=== PATIENT | male | born 1975 | race Caucasian/White ===

== ENCOUNTER → 2019-07-17 11:15 | Outpatient (BNVA) | payer BC, SELFPAY | PROVIDERS: Family Provider Family Medicine; PCP Family Medicine; Referring Provider Internal Medicine; Visit Provider Orthopaedic Surgery | DX: M25.561 Pain in right knee (principal) | CPT/HCPCS: 73560; 73565 ==

== ENCOUNTER 2019-08-01 12:49 | Outpatient (CLI) | payer BC, SELFPAY ==
--- NOTE | 2019-08-01 12:59 | MR_ITS ---
WS: [id number] MRI RIGHT KNEE HISTORY: history of meniscal tear COMPARISON: 05/04/2011 Anterior cruciate ligament: Intact. Posterior cruciate ligament: Intact. Medial collateral ligament: Intact. Posterior lateral corner structures: Intact. Medial menisci: Intact. Normal signal, size and shape. Lateral meniscus: Intact. Normal signal, size and shape. There is slight increased signal in the body . Seen only on one sequence. Indeterminate for radial tear. Extensor mechanism: Extensor tendon is normal. Again noted is increased signal in the distal patellar tendon. Fragmentation in the tibial tubercle with increased fluid between the tubercle fragments and mild increased signal in the tibia. Small amount of fluid in the adjacent infrapatellar fat pad. Fluid and soft tissue: Small joint effusion. No Henao's cyst. Osseous and articular structures: Patellofemoral compartment: Normal. Medial compartment: Loss of cartilage along the medial femoral condyle towards the intercondylar notc h. There is an additional full thickness defect in the posterior femoral condyle cartilage. Lateral compartment: No significant degenerative change. 5 mm low signal nodule seen within the medial joint compartment and posterior to the meniscus. Not pr esent on prior studies and is thought to be a loose body. Lobulated cyst measures 8 mm posterior lateral tibial plateau. MR/MR knee RT wo con* [id number] IMPRESSION: 1. No acute meniscal tear. Indeterminate for radial tear body lateral meniscus . 2. Well-circumscribed 5 mm loose body posterior to the medial meniscus. 3. Fragmentation of the tibial tubercle with increased fluid surrounding the f ragments and extending into the infrapatellar fat pad with mild patellar tendin itis. 4. Focal, superficial chondromalacia medial femoral condyle. Additional chondr omalacia posterior medial femoral condyle.
== END 2019-08-01 12:50 | disposition home or self-care (01) ==
LOC: RADSHAW 12:56
PROVIDERS: Family Provider Family Medicine; PCP Internal Medicine; Visit Provider Internal Medicine
DX: M25.561 Pain in right knee (principal); M94.261 Chondromalacia, right knee
CPT/HCPCS: 73721

== ENCOUNTER 2020-01-05 08:13 | Outpatient (CLI) | payer BC, SELFPAY ==
[2020-01-05 08:36] LABS: Basophils # 0.1 10^3/uL (0.0-0.1); Basophils % 0.9 %; Hematocrit 52.5 % (42.0-52.0); Hemoglobin 17.8 g/dL (11.7-16.6); Lymphocytes # 3.2 10^3/uL (0.8-4.8); Lymphocytes % 34.4 %; Mean Corpuscular HGB Conc 33.9 g/dL (30.0-36.0); Mean Corpuscular Hemoglobin 29.2 pg (28.0-34.0); Mean Corpuscular Volume 86.2 fL (80-94); Monocytes # 0.7 10^3/uL (0.2-0.9); Neutrophils # 5.32 10^3/uL (1.8-7.7); Neutrophils % 57.6 %; Nucleated Red Blood Cells % 0 %; Platelet Count 310 10^3/cmm (130-400); Red Blood Count 6.09 10^6/uL (4.1-5.3); Red Cell Distribution Width 11.9 % (12.1-15.1); White Blood Count 9.2 10^3/uL (4.0-10.0)
[2020-01-05 08:52] LABS: Estmated Average Glucose 203; Hemoglobin A1C 8.7 % (4.0-6.0)
[2020-01-05 08:53] LABS: Alanine Aminotransferase 50 U/L (0-41); Albumin Level 4.1 g/dL (3.5-5.2); Alkaline Phosphatase 76 IU/L (40-130); Anion Gap 13.8 (5-19); Aspartate Amino Transferase 28 U/L (0-40); Blood Urea Nitrogen 10 mg/dL (6-20); Calcium 8.7 mg/dL (8.5-10.5); Carbon Dioxide 29 mmol/L (22-29); Chloride 102 mmol/L (98-107); Cholesterol 203 mg/dL (0-200); Globulin 3.3 g/dL (1.3-4.6); Glomerular Filtration Rate 81.6 mL/min (90-130); Glucose 130 mg/dL (65-115); HDL Cholesterol 35 mg/dL (60-100); LDL Cholesterol Calculated 113 mg/dL (50-129); LDL HDL Ratio 3.23 RATIO (0.00-3.22); Osmolality Calculated 290 mOsm/kg (285-295); Potassium 3.8 mmol/L (3.5-5.1); Sodium 141 mmol/L (136-145); Total Bilirubin 0.3 mg/dL (0.15-1.2); Total Protein 7.4 g/dL (6.6-8.7); Triglycerides 277 mg/dL (0-150)
== END 2020-01-05 08:14 | disposition home or self-care (01) ==
LOC: LAB 08:16
PROVIDERS: PCP Internal Medicine; Visit Provider Internal Medicine
DX: E11.9 Type 2 diabetes mellitus without complications (principal); K75.81 Nonalcoholic steatohepatitis (NASH)
CPT/HCPCS: 36415; 80053; 80061; 83036; 85025

== ENCOUNTER → 2020-04-10 13:45 | Outpatient (BNVA) | payer BC, SELFPAY | PROVIDERS: PCP Internal Medicine; Visit Provider Nurse Practitioner | DX: U07.1 COVID-19 (principal) | CPT/HCPCS: 87635 ==

== ENCOUNTER → 2020-12-14 15:32 | Outpatient (BNVA) | payer BC, SELFPAY | PROVIDERS: PCP Internal Medicine; Visit Provider Internal Medicine | DX: E11.9 Type 2 diabetes mellitus without complications (principal); B35.1 Tinea unguium; I10 Essential (primary) hypertension | CPT/HCPCS: 80053; 80061; 83036; 84443; G0103 ==

== ENCOUNTER → 2021-07-05 14:45 | Outpatient (BNVA) | payer OTHER, SELFPAY | PROVIDERS: PCP Internal Medicine; Visit Provider Internal Medicine | DX: E11.9 Type 2 diabetes mellitus without complications (principal); I10 Essential (primary) hypertension | CPT/HCPCS: 80053; 80061; 83036; 84443 ==

== ENCOUNTER 2021-12-12 06:20 | Day surgery (SDC) | payer OTHER, SELFPAY ==
[2021-12-08 09:39] VITALS: BMI 37.5
[2021-12-12 06:46] VITALS: BP 172/111; PULSE 69; RESP 18; TEMP 36.2; O2SAT 97
--- NOTE | 2021-12-12 06:47 | P.ANESASSM_ITS ---
Pre-Anesthetic Assessment Height/Weight: Height 1.85 m Weight 129.274 kg Preop Diagnosis: Screen Operation Date: 12/12/21 07:30 Proposed Procedures p Colonoscopy 71348,Z86.010(Not Applicable) - Kian Carlin MD Familial anesthetic complications: None Was Beta Yusef taken within 24 hours: N/A Was Clonidine taken within 24 hours: N/A Last Intake: 20:00 Social Alcohol (A few drinks a week) and Tobacco (Social) Exam alert, oriented x 3, clear to auscultation bilaterally and regular rate & rhythm Airway Submandibular: within normal limits Cervical ROM: within normal limits Mallampati: Class III Dentition: other (Broken tooth upper right) History/ROS No significant history except as noted and No significant complaints Pulmonary None reported CV/HEM Hypertension None reported Hepatic None reported GI None reported Metabolic Diabetes Mellitus and Hyperlipidemia [facility] [place] None reported Neuropsych None reported Anesthetic Plan ASA status: 2 Anesthesia: Anesthesia Evaluation, General and MAC Risk of > 500 ml blood loss (7ml/kg in children): No Medications/Allergies Home Medications Medication Instructions Recorded Confirmed Last Taken Type pen needle, diabetic 31 gauge x #100 ea 05/21/19 11/28/21 Unknown Rx 5/16 (Comfort EZ Pen [place]) lisinopril 40 mg tablet 40 mg PO DAILY #90 tabs 12/14/20 12/12/21 12/10/21 Rx insulin lispro 100 unit/mL 5 unit (0.05 mL) SUBCUT TID #15 mL 03/24/21 12/08/21 Unknown Rx subcutaneous pen (Humalog KwikPen (U-100) Insulin) blood-glucose transmitter (Dexcom #1 ea 04/25/21 11/28/21 Unknown Rx G6 Transmitter) nifedipine 30 mg tablet,extended 30 mg PO DAILY #90 tabs 11/10/21 12/12/21 12/12/21 Rx release tadalafil 20 mg tablet 20 mg PO DAILY PRN sexual activity 11/11/21 12/12/21 12/05/21 Rx #30 tabs blood-glucose sensor (Dexcom G6 #3 ea 11/21/21 11/28/21 Unknown Rx Sensor) insulin glargine U-300 conc 300 124 unit (0.4133 mL) SUBCUT DAILY 11/28/21 12/08/21 12/11/21 Rx unit/mL (3 mL) subcutaneous pen #6 mL (Toujeo Max U-300 SoloStar) olopatadine 0.7 % eye drops 1 drp ophthalmic (eye) DAILY #5 mL 11/28/21 12/08/21 12/11/21 Rx (Pataday Once Daily Relief) sitagliptin 100 mg tablet (Januvia) 100 mg PO DAILY 12/12/21 12/12/21 12/11/21 History Allergies Allergy/AdvReac Type Severity Reaction Status Date / Time Zdclxnj-CBM-GdM Reductase Allergy ALGY-Joint Verified 12/08/21 09:36 Inhibitor Pain [facility] Anesthesia Medical History (Updated 11/28/21 @ 14:43 by Kian Carlin MD) Attention deficit disorder (ADD) in adult Diabetes mellitus Hypertension Family History Other Diabetes Heart disease Social History Smoking and tobacco status: former smoker Alcohol intake: current Alcohol intake frequency: few times a month History of recent travel: No Data Anesthesia Cardiac Studies: No Data to Display
[2021-12-12] MEDS: sodium chloride 0.9% 1,000 ML 30 ML IV (06:52)
--- NOTE | 2021-12-12 07:42 | P.HP_ITS ---
Same Day Surgery H&P Indication for Procedure/HPI DATE OF PROCEDURE: December 12, 2021 CHIEF COMPLAINT/INDICATIONFOR SURGICAL PROCEDURE: Screening PREOP DIAGNOSIS: Screen PLANNED PROCEDURE: Operation Date: 12/12/21 07:30 Proposed Procedures p Colonoscopy 69576,Z86.010(Not Applicable) - Kian Carlin MD Medications/Allergies* Home Medications Medication Instructions Recorded Confirmed Type sitagliptin 100 mg tablet (Januvia) 100 mg PO DAILY 12/12/21 12/12/21 History Allergies/Adverse Reactions Allergy/AdvReac Type Severity Reaction Status Date / Time Sovtlsp-LYA-MiZ Reductase Allergy ALGY-Joint Verified 12/08/21 09:36 Inhibitor Pain Current Medications: Generic Name Dose Route Start Last Admin Trade Name Freq PRN Reason Stop Dose Admin Sodium Chloride 1,000 mls @ 30 mls/hr 12/12/21 06:30 12/12/21 06:52 Sodium Chloride 0.9% IV 12/13/21 06:29 30 mls/hr .Q24H TIEN Administration Pertinent History/Comorbid Conditions* Medical History (Updated 11/28/21 @ 14:43 by Kian Carlin MD) Attention deficit disorder (ADD) in adult Diabetes mellitus Hypertension Family History (Updated 04/17/19 @ 15:19 by Margi Oliveira LPN) Diabetes Heart disease Social History Smoking and tobacco status: former smoker Alcohol intake: current Alcohol intake frequency: few times a month History of recent travel: No Pertinent Exam Findings alert, oriented x 3, clear to auscultation bilaterally, regular rate & rhythm, operative site marked and procedure specific exam findings Recommendations Surgery/Procedure today Coding Level of Care Code Acute Pst Specialist for Kenton Barrientos
[2021-12-12 08:10] VITALS: BP 130/84; PULSE 67; RESP 16; TEMP 36.2; O2SAT 96
[2021-12-12 08:16] VITALS: BP 142/95; PULSE 68; RESP 18; O2SAT 94
--- NOTE | 2021-12-12 12:00 | ANE.PACU2 ---
Inpatient post-anesthesia follow up: Airway intact: Yes Vital signs: Temperature 97.2 F Pulse Rate 68 Respiratory Rate 18 Blood Pressure 142/95 Pulse Oximetry 94 Oxygen Delivery Me thod Room Air Oxygen Flow Rate Fraction of Inspir ed Oxygen Hydration adequate: Yes Nausea and vomiting: No Pain level: 1 Mental status: Baseline
== END 2021-12-12 08:29 | disposition home or self-care (01) ==
PROVIDERS: PCP Internal Medicine; Visit Provider Internal Medicine
PROC: 0DJD8ZZ Inspection of Lower Intestinal Tract, Via Natural or Artificial Opening Endoscopic (ICD-10-PCS; CPT 45378; principal; 2021-12-12 07:30)
DX: Z12.11 Encounter for screening for malignant neoplasm of colon (principal); Z86.010 Personal history of colon polyps; D12.0 Benign neoplasm of cecum; Z87.891 Personal history of nicotine dependence; E11.9 Type 2 diabetes mellitus without complications; I10 Essential (primary) hypertension; E78.5 Hyperlipidemia, unspecified; Z79.4 Long term (current) use of insulin
CPT/HCPCS: 45385; 88305; J2704; J3490; J7030

== ENCOUNTER 2022-04-04 08:11 | Outpatient (CLI) | payer OTHER, SELFPAY ==
[2022-04-04 09:31] LABS: Estmated Average Glucose 203; Hemoglobin A1C 8.7 % (4.0-6.0)
[2022-04-04 09:40] LABS: Alanine Aminotransferase 29 U/L (0-41); Albumin Level 3.7 g/dL (3.5-5.2); Alkaline Phosphatase 90 U/L (40-130); Blood Urea Nitrogen 20 mg/dL (6-20); Calcium 9.2 mg/dL (8.5-10.5); Carbon Dioxide 27 mmol/L (22-29); Chloride 98 mmol/L (98-107); Chol HDL Ratio 8.13 mg/dL (1.0-5.00); Cholesterol 244 mg/dL (0-200); Globulin 3.5 g/dL (1.3-4.6); Glomerular Filtration Rate 65.5 mL/min (90-130); Glucose 249 mg/dL (65-115); HDL Cholesterol 30 mg/dL (60-100); LDL Cholesterol Calculated 135 mg/dL (50-129); Osmolality Calculated 291 mOsm/kg (285-295); Prostate Specific Antigen 0.845 ng/mL (0-4); Sodium 135 mmol/L (136-145); Thyroid Stimulating Hormone 1.12 uIU/mL (0.27-4.20); Total Bilirubin 0.5 mg/dL (0.15-1.2); Total Protein 7.2 g/dL (6.6-8.7); Triglycerides 395 mg/dL (0-150)
[2022-04-04 09:43] LABS: Aspartate Amino Transferase 21 U/L (0-40)
== END 2022-04-04 08:12 | disposition home or self-care (01) ==
LOC: LAB 08:12
PROVIDERS: PCP Family Medicine; Visit Provider Family Medicine
DX: E11.9 Type 2 diabetes mellitus without complications (principal); G47.30 Sleep apnea, unspecified; I10 Essential (primary) hypertension
CPT/HCPCS: 36415; 80053; 80061; 83036; 84153; 84443

== ENCOUNTER → 2022-10-10 09:07 | Outpatient (BNVA) | payer OTHER, SELFPAY | PROVIDERS: PCP Family Medicine; Visit Provider Family Medicine | DX: E11.9 Type 2 diabetes mellitus without complications (principal); E78.2 Mixed hyperlipidemia; I10 Essential (primary) hypertension; Z78.9 Other specified health status | CPT/HCPCS: 80053; 80061; 83036; 85025 ==

== ENCOUNTER 2023-04-04 10:00 | Outpatient (CLI) | payer OTHER, SELFPAY | END 2023-04-04 10:01 | disposition home or self-care (01) | LOC: SLEEP 04-05 09:44 | PROVIDERS: PCP Family Medicine; Visit Provider Family Medicine | DX: G47.33 Obstructive sleep apnea (adult) (pediatric) (principal); G47.36 Sleep related hypoventilation in conditions classified elsewhere; G47.10 Hypersomnia, unspecified; R40.0 Somnolence | CPT/HCPCS: G0399 ==

== ENCOUNTER → 2023-08-10 10:19 | Outpatient (BNVA) | payer OTHER, SELFPAY | PROVIDERS: PCP Family Medicine; Visit Provider Family Medicine | DX: E78.2 Mixed hyperlipidemia (principal); I10 Essential (primary) hypertension; E11.65 Type 2 diabetes mellitus with hyperglycemia; Z79.4 Long term (current) use of insulin; M10.041 Idiopathic gout, right hand; R79.89 Other specified abnormal findings of blood chemistry; Z12.5 Encounter for screening for malignant neoplasm of prostate | CPT/HCPCS: 80053; 80061; 82607; 83036; 84439; 84443; 84550; 85651; 86140; G0103 ==

== ENCOUNTER → 2024-05-12 09:00 | Outpatient (BNVA) | payer BC, SELFPAY | PROVIDERS: PCP Family Medicine; Visit Provider Family Medicine | DX: E55.9 Vitamin D deficiency, unspecified (principal); E78.2 Mixed hyperlipidemia; E11.65 Type 2 diabetes mellitus with hyperglycemia; Z79.4 Long term (current) use of insulin; I10 Essential (primary) hypertension; Z78.9 Other specified health status | CPT/HCPCS: 80053; 80061; 82306; 82607; 83036; 85025; G0103 ==

== ENCOUNTER → 2024-05-23 09:09 | Outpatient (BNVA) | payer BC, SELFPAY | PROVIDERS: PCP Family Medicine; Visit Provider Physician Assistant | DX: M65.332 Trigger finger, left middle finger (principal) | CPT/HCPCS: 73130 ==

== ENCOUNTER 2024-06-20 10:28 | Day surgery (SDC) | payer OTHER, SELFPAY ==
[2024-06-20] VITALS (7 sets, daily range): BP systolic 93–137; BP diastolic 51–80; PULSE 54–67; RESP 16–18; TEMP 36.2–36.6; O2SAT 95–98; BMI 39.5
--- NOTE | 2024-06-20 11:00 | W.PM.OPSUD ---
Surgery/Procedure H&P Update DATE OF PROCEDURE: June 20, 2024 DATE H&P PERFORMED: 05/23/24 H&P UPDATE INFORMATION: I have reviewed H&P completed within last 30 days, I have examined patient prior to procedure and No changes to prior documentation PREOP DIAGNOSIS: left middle finger trigger PRIMARY INDICATION FOR PROCEDURE: Left middle finger trigger PLANNED PROCEDURE: Operation Date: 06/20/24 12:30 Proposed Procedures p Trigger Finger Release(Left) - Satish Noriega DO
--- NOTE | 2024-06-20 11:04 | ANES.PREANE2 ---
Pre-Anesthetic Assessment Height/Weight: Height 6 ft 1 in Weight 300 lb Temp Pulse Resp BP Pulse Ox O2 Del Method 97.3 F L 67 18 137/80 97 Room Air 06/20/24 10:45 06/20/24 10:45 06/20/24 10:45 06/20/24 10:45 06/20/24 10:45 06/20/24 10:45 Preop Diagnosis: left middle finger trigger Operation Date: 06/20/24 12:30 Proposed Procedures p Trigger Finger Release(Left) - Satish [place], DO Was Beta Yusef taken within 24 hours: N/A Was Clonidine taken within 24 hours: N/A Last intake: Intake Last Liquid Date 06/19/24 Last Liquid Time 18:30 Last Solid Date 06/19/24 Last Solid Time 18:30 Social Alcohol (Social) and Tobacco (Social) Exam alert, oriented x 3, clear to auscultation bilaterally and regular rate & rhythm Airway Submandibular: within normal limits Cervical ROM: within normal limits Mallampati: Class II Dentition: full Anesthetic Plan ASA status: 3 Anesthesia: MAC Other: No prior issues with anesthesia NPO since yesterday evening History of hypertension ongoing lisinopril and nifedipine Type 2 diabetes on chronic insulin. Preop BS 122 Smokes and drinks occasionally Recent labs reviewed and acceptable for procedure METs greater than 4 Plan for MAC anesthetic with local via surgeon Medications/Allergies Home Medications ?Medication ?Instructions ?Recorded ?Confirmed ?Last Taken ?Type pen needle, diabetic 31 gauge x #100 ea 05/21/19 05/23/24 Unknown Rx 5/16 (Comfort EZ Pen [place]) insulin pump cartridge,automated 04/25/22 05/23/24 Unknown History dose,BT with controller subcutaneous (Omnipod 5 G6 Intro Kit (Gen 5) subcutaneous cartridge with controller) lisinopril 40 mg tablet 40 mg PO DAILY #90 tabs 06/25/23 06/20/24 06/19/24 Rx evolocumab 140 mg/mL subcutaneous 140 mg SUBCUT .n1lrnmd #2 mL 10/09/23 06/20/24 06/09/24 Rx pen injector (Repatha SureClick) insulin regular hum U-500 conc 500 See Rx Instructions continuous 12/18/23 06/20/24 06/19/24 Rx unit/mL subcutaneous soln (Humulin subcutaneous infusion .COMPLEX #20 R U-500 (Concentrated) Insulin) mL blood-glucose sensor (Dexcom G6 #3 ea 12/25/23 05/23/24 Unknown Rx Sensor device) insulin pump cart,automated,BT #5 ea 12/25/23 05/23/24 Unknown Rx (Omnipod 5 G6 Pods (Gen 5) subcutaneous cartridge) chlorthalidone 25 mg tablet See Rx Instructions .Route 01/03/24 06/20/24 06/19/24 Rx .COMPLEX #30 tabs tadalafil 20 mg tablet 20 mg PO DAILY PRN sexual activity 03/17/24 06/20/24 Unknown Rx #30 tabs allopurinol 100 mg tablet See Rx Instructions .Route 04/24/24 06/20/24 06/19/24 Rx .COMPLEX #180 tabs nifedipine 30 mg tablet,extended See Rx Instructions .Route 04/24/24 06/20/24 06/19/24 Rx release 24 hr .COMPLEX #90 tabs blood-glucose transmitter (Dexcom #1 ea 05/20/24 05/23/24 Unknown Rx G6 Transmitter device) Allergies Allergy/AdvReac Type Severity Reaction Status Date / Time Ffzuuhp-JPI-GiI Reductase Allergy ALGY-Joint Verified 06/20/24 10:43 Inhibitor Pain PFSH Anesthesia Medical History Diabetes mellitus Hypertension Attention deficit disorder (ADD) in adult Family History Other Bleeding disorder Diabetes Heart disease Hyperlipidemia Hypertension Psychiatric illness Denies family history of CAD (coronary artery disease) Clotting disorder Dementia Chronic kidney disease (CKD) Anesthesia complication Lung disease Cancer Stroke Social History Smoking and tobacco/nicotine status: never used tobacco/nicotine Second hand smoke exposure: No Alcohol intake: current Alcohol intake frequency: few times a month Substance/Drug Use: never Lives independently: Yes Household members: family Marital status: Number of children: 2 Current occupational status: employed Current gender identity: Male Data Anesthesia Cardiac Studies: No Data to Display
[2024-06-20] MEDS: ketorolac 30 mg/mL INJ IVP (11:08)
[2024-06-20] MEDS: sodium chloride 0.9% 1,000 ML 30 ML IV (11:08)
[2024-06-20] MEDS: scopolamine 1 mg PATCH 1 PATCH TRANSDERMA (11:08)
[2024-06-20] MEDS: acetaminophen 1,000 MG/100 ML PIGGYBACK 400 MG IV (11:09)
[2024-06-20 11:15] LABS: Glucose Point of Care 150 mg/dL (70-110)
[2024-06-20] MEDS: ceFAZolin 2,000 MG in sodium chloride 0.9% (plus) 50 ML 100 MG IV (11:54)
[2024-06-20] MEDS: ceFAZolin 1,000 mg SDV 1000 MG IVP (11:55)
[2024-06-20] MEDS: lidocaine 1% 10 ML INJ XX (12:18)
[2024-06-20] MEDS: ROPivacaine 0.5% SDV 30 mL 150 MG INJECTION (12:18)
--- NOTE | 2024-06-20 13:23 | ANE.PACU2 ---
Inpatient post-anesthesia follow up: Airway intact: Yes Vital signs: Temperature 98 F Pulse Rate 57 Respiratory Rate 16 Blood Pressure 102/57 Pulse Oximetry 98 Oxygen Delivery Me thod Room Air Oxygen Flow Rate Fraction of Inspir ed Oxygen Hydration adequate: Yes Nausea and vomiting: No Pain level: 1 Mental status: Baseline
--- NOTE | 2024-06-20 13:52 | P.BOP_ITS ---
Date of Procedure: 06/20/2024 Surgeon: Satish Noriega DO Light Bulb Tester(s): None Procedure(s) performed: Left middle finger trigger release Findings of the procedure(s): Patient found to have left middle finger trigger underwent procedure as planned without issues or complications. Estimated blood loss: 2 mL Specimen(s) removed: None Post-operative diagnosis: Left middle finger trigger
--- NOTE | 2024-06-20 13:53 | P.OP_ITS ---
Operative Report Date of procedure: June 20, 2024 Surgeon: Satish Noriega DO Procedure: Preoperative diagnosis: Left middle finger trigger Post-op diagnosis: Same Procedure done: Left?middle?finger?trigger?release Surgeon: Satish Noriega DO Estimated blood loss: 2cc Tourniquet time 7mins Complications: None Condition: stable Disposition: same day Brief History: Patient's been seen and worked up in the outpatient setting and findings consistent with preoperative diagnosis of Left?middle?finger?trigger.? He is failed conservative treatment.? Continues to have mechanical locking and catching.? Severe pain as well.? We talked about treatment options nonoperative versus operative intervention.? ?Patient understands the risk benefits complication alternatives of surgical nonsurgical treatment options.? Understanding his risks with surgery he elects proceed with surgical intervention.? Consent obtained in the preop areas.? Here today to proceed with surgical intervention.? All questions answered. Procedure: Patient was seen and evaluated in the preoperative holding area.? Consent was reviewed and signed with patient.? Seen evaluated by Anesthesia Department.? Once cleared for surgery was brought back to the operative suite.? Placed in supine position on the OR table all bony prominences well-padded patient properly secured to the bed.? Patient's Left arm was then placed to the armb oard.? A nonsterile tourniquet applied to the Left upper arm.? Patient's Left upper extremity was then prepped and draped in standard orthopedic fashion.? Final timeout performed.? Patient received appropriate preoperative antibiotics. Esmarch tourniquet was used exsanguinate the Left upper extremity tourniquet insufflated to 250 mmHg. Under sterile aseptic technique local digital block was performed to the Left?middle?finger.? Once appropriately anesthetized a standard oblique incision was made centering over the A1 jerrell following patient's flexor crease.? Sharp scalpel incision was made only through skin and then switched to Littler dissection scissors and spread longitudinally directly over the flexor tendon sheath.? I then mobilized both radially and ulnarly and Kasdan retractors were used and placed by my human resources executive assistant to protect neurovascular bundle.? Next I visualized the A1 jerrell and this was incised with a scalpel.? I then switched to dissection scissors and released the A1 jerrell both proximally as well as distally to its entirety.? Significant tendon sheath fluid was noted consistent with inflammation.? Mild fraying of the flexor tendons noted but no tear.? At this point I utilized a rag nail and pulled the tendons FDS and FDP out of the incision and no?triggering was noted.? I then had anesthesia wake up the patient and patient was able to actively flex and extend with no?triggering.? This point thorough irrigation was performed.? Tourniquet deflated hemostasis satisfactory with bipolar.? I then subsequently closed the incision with interrupted nylon suture.? Xeroform 4 x 4's, Kerlix and an Zelalem wrap was applied for a bulky soft dressing.? Patient was then subsequently awakened from anesthesia and taken to PACU in stable condition tolerated procedure without issues. Disposition: Patient taken back in stable condition recovering well.? Patient will receive appropriate discharge instruction as well as pain medication postoperatively.? Patient to follow-up with me in the office in 2 weeks for repeat evaluation and incision check.? Patient understands that any questions or concerns and contact the office.? All questions answered.
== END 2024-06-20 13:44 | disposition home or self-care (01) ==
PROVIDERS: PCP Family Medicine; Visit Provider Student in an Organized Health Care Education/Training Program
PROC: (CPT 26055; principal; 2024-06-20 12:20)
DX: M65.332 Trigger finger, left middle finger (principal); I10 Essential (primary) hypertension; E11.9 Type 2 diabetes mellitus without complications; Z79.899 Other long term (current) drug therapy; Z79.4 Long term (current) use of insulin; Z96.41 Presence of insulin pump (external) (internal); Z88.8 Allergy status to other drugs, medicaments and biological substances
CPT/HCPCS: 26055; 36416; 82962; J0131; J0690; J1885; J2704; J2795; J3010; J7030

== ENCOUNTER → 2024-09-16 10:38 | Outpatient (BNVA) | payer OTHER, SELFPAY | PROVIDERS: PCP Family Medicine; Visit Provider Family Medicine | DX: E11.21 Type 2 diabetes mellitus with diabetic nephropathy (principal); F98.8 Other specified behavioral and emotional disorders with onset usually occurring in childhood and adolescence; R53.82 Chronic fatigue, unspecified; R79.89 Other specified abnormal findings of blood chemistry; E29.1 Testicular hypofunction | CPT/HCPCS: 83036; 84403; 84439; 84443 ==

== ENCOUNTER 2024-12-23 09:51 | Outpatient (CLI) | payer OTHER, SELFPAY ==
[2024-12-23 10:12] LABS: Hematocrit 53.1 % (37-53); Hemoglobin 18.00 g/dL (11.27-16.99); Mean Corpuscular HGB Conc 33.9 g/dL (30-55); Mean Corpuscular Hemoglobin 29.1 pg (27-33); Mean Corpuscular Volume 85.8 fl (82-101); Nucleated Red Blood Cells % 0 %; Platelet Count 299 10^3/cmm (157-399); Red Blood Count 6.19 10^6/uL (3.85-5.65); White Blood Count 9.07 10^3/uL (3.29-11.43)
[2024-12-23 10:29] LABS: Estmated Average Glucose 143; Hemoglobin A1C 6.6 % (4.0-6.0)
[2024-12-23 10:34] LABS: Alanine Aminotransferase 28 U/L (0-41); Albumin Level 4.0 g/dL (3.5-5.2); Alkaline Phosphatase 78 U/L (40-130); Aspartate Amino Transferase 27 U/L (0-40); Blood Urea Nitrogen 22 mg/dL (6-20); Calcium 9.5 mg/dL (8.5-10.5); Carbon Dioxide 29 mmol/L (22-29); Chloride 97 mmol/L (98-107); Globulin 3.6 g/dL (1.3-4.6); Glucose 95 mg/dL (65-115); Osmolality Calculated 283 mOsm/kg (285-295); Sodium 135 mmol/L (136-145); Total Protein 7.6 g/dL (6.6-8.7)
[2024-12-23 10:38] LABS: Anion Gap 12.7 (5-19); Potassium 3.7 mmol/L (3.5-5.1)
[2024-12-23 11:59] LABS: Vitamin B12 882 pg/mL (232-1245)
== END 2024-12-23 09:52 | disposition home or self-care (01) ==
PROVIDERS: PCP Family Medicine; Visit Provider Family Medicine
DX: E11.65 Type 2 diabetes mellitus with hyperglycemia (principal); Z79.4 Long term (current) use of insulin; E11.21 Type 2 diabetes mellitus with diabetic nephropathy; R79.89 Other specified abnormal findings of blood chemistry; E29.1 Testicular hypofunction
CPT/HCPCS: 36415; 80053; 82607; 83036; 84403; 85025

== ENCOUNTER → 2024-12-24 11:18 | Outpatient (BNVA) | payer OTHER, SELFPAY | PROVIDERS: PCP Family Medicine; Visit Provider Family Medicine | DX: D48.9 Neoplasm of uncertain behavior, unspecified (principal) | CPT/HCPCS: 88304 ==

== ENCOUNTER 2025-03-25 08:29 | Outpatient (CLI) | payer OTHER, SELFPAY ==
[2025-03-25 08:54] LABS: Hematocrit 51.6 % (37-53); Hemoglobin 17.80 g/dL (11.27-16.99); Mean Corpuscular HGB Conc 34.5 g/dL (30-55); Mean Corpuscular Hemoglobin 29.3 pg (27-33); Mean Corpuscular Volume 84.9 fl (82-101); Nucleated Red Blood Cells % 0 %; Platelet Count 278 10^3/cmm (157-399); Red Blood Count 6.08 10^6/uL (3.85-5.65); White Blood Count 9.16 10^3/uL (3.29-11.43)
[2025-03-25 09:17] LABS: Estmated Average Glucose 140; Hemoglobin A1C 6.5 % (4.0-6.0)
[2025-03-25 09:19] LABS: Alanine Aminotransferase 22 U/L (0-41); Albumin Level 4.1 g/dL (3.5-5.2); Alkaline Phosphatase 68 U/L (40-130); Anion Gap 13.0 (5-19); Aspartate Amino Transferase 23 U/L (0-40); Blood Urea Nitrogen 27 mg/dL (6-20); Calcium 9.7 mg/dL (8.5-10.5); Carbon Dioxide 29 mmol/L (22-29); Chloride 100 mmol/L (98-107); Globulin 3.2 g/dL (1.3-4.6); Glucose 125 mg/dL (65-115); Osmolality Calculated 293 mOsm/kg (285-295); Potassium 4.0 mmol/L (3.5-5.1); Sodium 138 mmol/L (136-145); Total Protein 7.3 g/dL (6.6-8.7)
[2025-03-25 09:35] LABS: Vitamin B12 701 pg/mL (232-1245)
== END 2025-03-25 08:30 | disposition home or self-care (01) ==
PROVIDERS: PCP Family Medicine; Visit Provider Family Medicine
DX: E11.21 Type 2 diabetes mellitus with diabetic nephropathy (principal); Z79.4 Long term (current) use of insulin; R79.89 Other specified abnormal findings of blood chemistry; I10 Essential (primary) hypertension; E29.1 Testicular hypofunction
CPT/HCPCS: 36415; 80053; 82607; 83036; 84403; 85025